=== PATIENT | male | born 1985 | race African-American/Black ===

== ENCOUNTER 2017-12-18 18:30 | Emergency (ER) | payer SELFPAY ==
[2017-12-18] MEDS ORDERED: NORMAL SALINE 1000 ML 1,000 ML IV ONE (19:18)
[2017-12-18] MEDS ORDERED: ONDANSETRON HCL INJ/PF 4 MG/2 ML SDV IV ONE (19:18)
--- NOTE | 2017-12-18 19:19 | ER Document Report ---
ED Medical Screen (RME) - General Chief Complaint: Abdominal Pain Stated Complaint: STOMACH PAIN, HEADACHE Time Seen by Provider: 12/18/17 19:13 Notes: Patient is a 32-year-old male that presents to the emergency department for chief complaint of headache, nausea, and epigastric abdominal pain. Patient states that the symptoms started yesterday, have persisted through today, he admits also to having increased thirst and polyuria. Patient reports diabetes does run in his father, both his grandparents. ROS: Unless otherwise stated in this report the patient's positive and negative responses for review of systems for constitutional, eyes, ENT, cardiovascular, respiratory, gastrointestinal, neurological, genitourinary, musculoskeletal, and integumentary systems and related systems to the presenting problem are either as stated in the HPI or were not pertinent or were negative for the symptoms and/or complaints related to the presenting medical problem. PHYSICAL EXAMINATION: Vital signs reviewed. GENERAL: Well-appearing, well-nourished and in no acute distress. HEAD: Atraumatic, normocephalic. EYES: Pupils equal round extraocular movements intact, conjunctiva are normal. ENT: Nares patent NECK: Normal range of motion CV: Heart regular rate and rhythm LUNGS: No respiratory distress Musculoskeletal: Normal range of motion NEUROLOGICAL: Normal speech PSYCH: Normal mood, normal affect. MDM: Patient seen and examined for rapid initial assessment. Vital signs reviewed. A comprehensive ED assessment and evaluation of the patient, analysis of test results and completion of the medical decision making process will be conducted by additional ED providers. *Note is created using voice recognition software and may contain spelling, syntax or grammatical errors. TRAVEL OUTSIDE OF THE [place] IN LAST 30 DAYS: No - Related Data Allergies/Adverse Reactions: Penicillins Allergy (Verified 12/18/17 18:31) Past Medical History - Social History Chew tobacco use (# tins/day): No Frequency of alcohol use: Social Renal/ Medical History: Denies: Hx Peritoneal Dialysis Physical Exam - Vital signs Vitals: Temp Pulse Resp BP Pulse Ox 98.4 F 86 16 168/100 H 97 12/18/17 18:56 12/18/17 18:56 12/18/17 18:56 12/18/17 18:56 12/18/17 18:56 Course - Vital Signs Vital signs: Temp Pulse Resp BP Pulse Ox 98.4 F 86 16 171/99 H 97 12/18/17 18:56 12/18/17 18:56 12/18/17 18:56 12/18/17 18:57 12/18/17 18:56
[2017-12-18 19:45] LABS: APPEARANCE,URINE CLEAR; BILIRUBIN,URINE NEGATIVE (NEGATIVE); COLOR,URINE YELLOW; GLUCOSE, URINE NEGATIVE (NEGATIVE); KETONES,URINE NEGATIVE (NEGATIVE); LEUKOCYTE ESTERASE,URINE NEGATIVE (NEGATIVE); NITRITE,URINE NEGATIVE (NEGATIVE); PROTEIN,URINE NEGATIVE (NEGATIVE)
[2017-12-18 20:21] LABS: ABSOLUTE BASOPHILS # (AUTO) 0.1 10^3/uL (0.0-0.2); ABSOLUTE EOSINOPHILS # (AUTO) 0.2 10^3/uL (0.0-0.6); ABSOLUTE MONOCYTES (AUTO) 0.8 10^3/uL (0.1-1.4); ABSOLUTE NEUT (AUTO) 5.6 10^3/uL (1.7-8.2); BASOPHILS % (AUTO) 1.4 % (0-2); EOSINOPHILS % (AUTO) 2.1 % (0-6); HEMATOCRIT 41.4 % (37.9-51.0); HEMOGLOBIN 14.1 g/dL (13.5-17.0); LYMPHOCYTES % (AUTO) 37.2 % (13-45); MEAN CORPUSCULAR HEMOGLOBIN 30.4 pg (27.0-33.4); MEAN CORPUSCULAR VOLUME 90 fl (80-97); MONOCYTES % (AUTO) 7.5 % (3-13); PLATELET COUNT 279 10^3/uL (150-450); RED BLOOD COUNT 4.63 10^6/uL (4.35-5.55); RED CELL DISTRIBUTION WIDTH 12.7 % (11.5-14.0); SEGMENTED NEUTROPHILS % (AUTO) 51.8 % (42-78); TOTAL CELLS COUNTED % (AUTO) 100 %; WHITE BLOOD COUNT 10.9 10^3/uL (4.0-10.5)
[2017-12-18 20:35] LABS: ALANINE AMINOTRANSFERASE 27 U/L (21-72); ALBUMIN 3.8 g/dL (3.5-5.0); ALKALINE PHOSPHATASE 72 U/L (38-126); ANION GAP 7 (5-19); ASPARTATE AMINO TRANSFERASE 27 U/L (17-59); BILIRUBIN,DIRECT 0.2 mg/dL (0.0-0.4); BILIRUBIN,TOTAL 0.4 mg/dL (0.2-1.3); BLOOD UREA NITROGEN 12 mg/dL (7-20); CALCIUM 9.4 mg/dL (8.4-10.2); CARBON DIOXIDE 27 mmol/L (22-30); CHLORIDE 104 mmol/L (98-107); GLUCOSE 85 mg/dL (75-110); LIPASE 193.5 U/L (23-300); POTASSIUM 4.2 mmol/L (3.6-5.0); SODIUM 138.3 mmol/L (137-145); TOTAL PROTEIN 6.9 g/dL (6.3-8.2)
--- NOTE | 2017-12-18 21:39 | ER Document Report ---
ED General - General Chief Complaint: Abdominal Pain Stated Complaint: STOMACH PAIN, HEADACHE Time Seen by Provider: 12/18/17 19:13 Mode of Arrival: Ambulatory Information source: Patient TRAVEL OUTSIDE OF THE [place] IN LAST 30 DAYS: No - HPI Patient complains to provider of: Nausea and headache Onset: Other - This is a healthy 32-year-old male that presents for evaluation of nausea and a low-grade headache which is worst in the front of his head. He does not take anything try and help with this nothing seems to make it any better or worse, he does note that he has been going to the bathroom a little bit more than usual lately and has been more thirsty than usual lately. Denies any fevers or chills, episodes of emesis, true abdominal pain diarrhea or constipation or dysuria. - Related Data Allergies/Adverse Reactions: Penicillins Allergy (Verified 12/18/17 18:31) Past Medical History - General Information source: Patient - Social History Smoking Status: Current Every Day Smoker Chew tobacco use (# tins/day): No Frequency of alcohol use: Social Family History: None Patient has suicidal ideation: No Patient has homicidal ideation: No Renal/ Medical History: Denies: Hx Peritoneal Dialysis Review of Systems - Review of Systems -: Yes All other systems reviewed and negative Physical Exam - Vital signs Vitals: Temp Pulse Resp BP Pulse Ox 98.4 F 86 16 168/100 H 97 12/18/17 18:56 12/18/17 18:56 12/18/17 18:56 12/18/17 18:56 12/18/17 18:56 - General General appearance: Appears well In distress: None - HEENT Head: Normocephalic Eyes: Normal Conjunctiva: Normal Cornea: Normal Extraocular movements intact: Yes Eyelashes: Normal Pupils: PERRL - Respiratory Respiratory status: No respiratory distress Chest status: Nontender Breath sounds: Normal Chest palpation: Normal - Cardiovascular Rhythm: Regular Heart sounds: Normal auscultation Murmur: No - Abdominal Inspection: Striae Bowel sounds: Normal Tenderness: Nontender - Back Back: Normal - Extremities General upper extremity: Normal inspection, Nontender, Normal strength, Normal temperature General lower extremity: Normal inspection, Nontender, Normal strength, Normal temperature - Neurological Neuro grossly intact: Yes Cognition: Normal Orientation: AAOx4 [place] Coma Scale Eye Opening: Spontaneous Thang Coma Scale Verbal: Oriented Thang Coma Scale Motor: Obeys Commands Thang Coma Scale Total: 15 Speech: Normal Cranial nerves: Normal Cerebellar coordination: Normal Motor strength normal: LUE, RUE, LLE, RLE - Psychological Associated symptoms: Normal affect Course - Re-evaluation Re-evalutation: 12/19/17 01:54 This is a well-appearing 32-year-old man. He had labs drawn through triage which are within normal limits. 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 I do believe that this may be the case, as he has not taken anything to try and help with this will give him a brief prescription of Fioricet for a trial. Not believe he warrants further imaging at this time as his abdominal examination is reassuring is well-appearing. We will plan for this patient undergo discharge with return precautions and encouraged follow-up with his primary physician. He was encouraged also to avoid wearing tight weeks. - Vital Signs Vital signs: Temp Pulse Resp BP Pulse Ox 98.4 F 66 16 156/94 H 99 12/18/17 18:57 12/18/17 22:14 12/18/17 22:14 12/18/17 22:14 12/18/17 22:14 - Laboratory Result Diagrams: 12/18/17 20:07 12/18/17 20:07 Laboratory results interpreted by me: 12/18/17 12/18/17 19:25 20:07 WBC 10.9 H Urine Urobilinogen 2.0 H Discharge - Discharge Clinical Impression: Nausea Headache Qualifiers: Headache type: tension-type Headache chronicity pattern: acute headache Intractability: not intractable Qualified Code(s): G44.209 - Tension-type headache, unspecified, not intractable Condition: Good Disposition: HOME, SELF-CARE Instructions: Headache ([facility]), Tension Headache ([facility]) Additional Instructions: Your seen today in the emergency department for your headache as well as nausea. Likely they have a tension headache, your nausea may be related to your headache. Use medication prescribed you only as needed for your headache. Return for any worsening headache, numbness or weakness, fevers or chills. Prescriptions: Butalb/Acetaminophen/Caffeine [Fioricet 50-300-40 mg Capsule] 1 cap PO Q4 PRN # 30 cap PRN Reason: Forms: Elevated Blood Pressure, Return to Work
[2017-12-18 22:18] VITALS: BP 156/94
== END 2017-12-18 22:17 | disposition home or self-care (01) ==
LOC: ER 18:30
DX: G44.209 Tension-type headache, unspecified, not intractable (principal); R11.0 Nausea; R63.1 Polydipsia; F17.200 Nicotine dependence, unspecified, uncomplicated; Z88.0 Allergy status to penicillin
CPT/HCPCS: 99284; 96361; 96374; 36415; 82962; 83690; 85025; 80053; 81001; J2405; J7030

== ENCOUNTER 2018-06-13 19:07 | Emergency (ER) | payer SELFPAY ==
[2018-06-13 19:52] VITALS: BP 180/94
[2018-06-13] MEDS ORDERED: ACETAMINOPHEN 325 MG TABLET PO ONE (20:11)
[2018-06-13] MEDS ORDERED: ASPIRIN 81 MG TABLET, CHEWABLE PO ONE (20:11)
--- NOTE | 2018-06-13 20:12 | ER Document Report ---
ED Medical Screen (RME) - General Chief Complaint: Chest Pain Stated Complaint: HEADACHE Time Seen by Provider: 06/13/18 20:09 Mode of Arrival: Ambulatory Information source: Patient Notes: 32-year-old male presented to ED for complaint of chest pain since a.m. States is also had a headache fever chills urinary frequency. He states he had chest pain about a year ago and the provider told him that he was having chest pain because he was fat. He states he did not get any treatment or any testing done at that time. Patient does have a temperature of 101 at this time with a pulse of 105 elevated blood pressure. Patient is alert oriented respirations regular and unlabored lungs clear to auscultation at this time. I have greeted and performed a rapid initial assessment of this patient. A comprehensive ED assessment and evaluation of the patient, analysis of test results and completion of medical decision making process will be conducted by an additional ED providers. TRAVEL OUTSIDE OF THE [place] IN LAST 30 DAYS: No - Related Data Allergies/Adverse Reactions: Penicillins Allergy (Verified 12/18/17 18:31) Past Medical History Renal/ Medical History: Denies: Hx Peritoneal Dialysis Physical Exam - Vital signs Vitals: Temp Pulse Resp BP Pulse Ox 101.2 F H 105 H 18 180/94 H 98 06/13/18 19:49 06/13/18 19:49 06/13/18 19:49 06/13/18 19:49 06/13/18 19:49 Course - Vital Signs Vital signs: Temp Pulse Resp BP Pulse Ox 101.2 F H 105 H 18 180/94 H 98 06/13/18 19:49 06/13/18 19:49 06/13/18 19:49 06/13/18 19:49 06/13/18 19:49
--- NOTE | 2018-06-13 21:01 | RADIOLOGY REPORT (SQ) ---
EXAM DESCRIPTION: XR CHEST 2 VIEWS COMPLETED DATE/TME: 06/13/2018 20:10 CLINICAL HISTORY: 32 years, Male, Chest pain shortness of breath and fever COMPARISON: EXAM DESCRIPTION: CLINICAL HISTORY: Chest pain shortness of breath and fever COMPARISON: None. FINDINGS: Two views of the chest are submitted. There is mild bilateral pulmonary edema. Cardiac silhouette appears normal. No focal parenchymal or pleural disease. No acute bony abnormality. There is no significant pulmonary vascular engorgement. IMPRESSION: Mild pulmonary edema. Possible viral inflammation of the airways.
[2018-06-13 21:33] LABS: ABSOLUTE EOSINOPHILS # (AUTO) 0.1 10^3/uL (0.0-0.6); ABSOLUTE LYMPHOCYTES (AUTO) 1.6 10^3/uL (0.5-4.7); ABSOLUTE MONOCYTES (AUTO) 0.7 10^3/uL (0.1-1.4); BASOPHILS % (AUTO) 0.5 % (0-2); EOSINOPHILS % (AUTO) 0.8 % (0-6); HEMATOCRIT 39.5 % (37.9-51.0); HEMOGLOBIN 13.8 g/dL (13.5-17.0); LYMPHOCYTES % (AUTO) 19.1 % (13-45); MEAN CORPUSCULAR HEMOGLOBIN 30.7 pg (27.0-33.4); MEAN CORPUSCULAR HGB CONC 34.8 g/dL (32.0-36.0); MEAN CORPUSCULAR VOLUME 88 fl (80-97); MONOCYTES % (AUTO) 8.5 % (3-13); PLATELET COUNT 254 10^3/uL (150-450); RED BLOOD COUNT 4.49 10^6/uL (4.35-5.55); SEGMENTED NEUTROPHILS % (AUTO) 71.1 % (42-78); TOTAL CELLS COUNTED % (AUTO) 100 %; WHITE BLOOD COUNT 8.5 10^3/uL (4.0-10.5)
[2018-06-13 21:53] LABS: ALANINE AMINOTRANSFERASE 38 U/L (21-72); ALBUMIN 4.1 g/dL (3.5-5.0); ALKALINE PHOSPHATASE 71 U/L (38-126); ANION GAP 8 (5-19); ASPARTATE AMINO TRANSFERASE 26 U/L (17-59); BILIRUBIN,DIRECT 0.3 mg/dL (0.0-0.4); BILIRUBIN,TOTAL 0.5 mg/dL (0.2-1.3); BLOOD UREA NITROGEN 12 mg/dL (7-20); CARBON DIOXIDE 28 mmol/L (22-30); CHLORIDE 104 mmol/L (98-107); GLUCOSE 87 mg/dL (75-110); TOTAL PROTEIN 7.3 g/dL (6.3-8.2)
[2018-06-13 21:59] LABS: CREATINE KINASE MB 0.27 ng/mL (<4.55)
[2018-06-13 22:00] LABS: TROPONIN I < 0.012 ng/mL
--- NOTE | 2018-06-13 22:43 | EKG REPORT ---
SEVERITY:- BORDERLINE ECG - SINUS TACHYCARDIA PROBABLE LEFT ATRIAL ABNORMALITY BORDERLINE T WAVE ABNORMALITIES : Confirmed by: Nicolette Arana MD 13-Jun-2018 22:42:34
== END 2018-06-13 23:56 | disposition left against medical advice (07) ==
LOC: ER 19:07
DX: Z53.21 Procedure and treatment not carried out due to patient leaving prior to being seen by health care provider (principal); R07.9 Chest pain, unspecified; R51 Headache; R50.9 Fever, unspecified; R35.0 Frequency of micturition; R00.0 Tachycardia, unspecified; R03.0 Elevated blood-pressure reading, without diagnosis of hypertension
CPT/HCPCS: 36415; 71046; 80053; 82553; 83690; 84484; 85025; 87086; 93005; 93010; 99281

== ENCOUNTER 2018-06-14 10:53 | Emergency (ER) | payer SELFPAY ==
[2018-06-14 11:47] LABS: APPEARANCE,URINE CLEAR; BILIRUBIN,URINE NEGATIVE (NEGATIVE); COLOR,URINE YELLOW; GLUCOSE, URINE NEGATIVE (NEGATIVE); KETONES,URINE NEGATIVE (NEGATIVE); LEUKOCYTE ESTERASE,URINE NEGATIVE (NEGATIVE); NITRITE,URINE NEGATIVE (NEGATIVE); PROTEIN,URINE NEGATIVE (NEGATIVE); URINE SPECIFIC GRAVITY 1.021; UROBILINOGEN,URINE NEGATIVE mg/dL (<2.0)
[2018-06-14 12:03] LABS: ABSOLUTE LYMPHOCYTES (AUTO) 0.9 10^3/uL (0.5-4.7); ABSOLUTE MONOCYTES (AUTO) 0.8 10^3/uL (0.1-1.4); ABSOLUTE NEUT (AUTO) 4.7 10^3/uL (1.7-8.2); BASOPHILS % (AUTO) 0.6 % (0-2); EOSINOPHILS % (AUTO) 0.7 % (0-6); HEMATOCRIT 41.2 % (37.9-51.0); LYMPHOCYTES % (AUTO) 13.6 % (13-45); MEAN CORPUSCULAR HEMOGLOBIN 29.8 pg (27.0-33.4); MEAN CORPUSCULAR VOLUME 88 fl (80-97); MONOCYTES % (AUTO) 11.7 % (3-13); PLATELET COUNT 235 10^3/uL (150-450); RED BLOOD COUNT 4.69 10^6/uL (4.35-5.55); SEGMENTED NEUTROPHILS % (AUTO) 73.4 % (42-78); TOTAL CELLS COUNTED % (AUTO) 100 %; WHITE BLOOD COUNT 6.4 10^3/uL (4.0-10.5)
--- NOTE | 2018-06-14 12:12 | RADIOLOGY REPORT (SQ) ---
EXAM DESCRIPTION: CHEST 2 VIEWS COMPLETED DATE/TIME: 06/14/2018 12:01 pm REASON FOR STUDY: coughff congestion chest pain COMPARISON: 06/13/2018 EXAM PARAMETERS: NUMBER OF VIEWS: two views TECHNIQUE: Digital Frontal and Lateral radiographic views of the chest acquired. RADIATION DOSE: NA LIMITATIONS: none FINDINGS: LUNGS AND PLEURA: There is minimal diffuse interstitial pulmonary opacity. No focal airsp massiel opacity. MEDIASTINUM AND HILAR STRUCTURES: No masses or contour abnormalities. HEART AND VASCULAR STRUCTURES: Heart normal size. No evidence for failure. BONES: No acute findings. HARDWARE: None in the chest. OTHER: No other significant finding. IMPRESSION: There is minimal diffuse interstitial pulmonary opacity without focal airspace opacity. As on prior, findings may reflect atypical or viral infection. TECHNICAL DOCUMENTATION: JOB ID: [id number] [employer]- All Rights Reserved Reading location - IP/workstation name: [email or web address]
[2018-06-14 12:27] LABS: ALANINE AMINOTRANSFERASE 40 U/L (21-72); ALBUMIN 4.1 g/dL (3.5-5.0); ALKALINE PHOSPHATASE 68 U/L (38-126); ANION GAP 7 (5-19); ASPARTATE AMINO TRANSFERASE 28 U/L (17-59); BILIRUBIN,DIRECT 0.2 mg/dL (0.0-0.4); BILIRUBIN,TOTAL 0.5 mg/dL (0.2-1.3); BLOOD UREA NITROGEN 11 mg/dL (7-20); CALCIUM 9.8 mg/dL (8.4-10.2); CARBON DIOXIDE 27 mmol/L (22-30); CHLORIDE 106 mmol/L (98-107); GLUCOSE 93 mg/dL (75-110); POTASSIUM 3.9 mmol/L (3.6-5.0); SODIUM 140.4 mmol/L (137-145); TOTAL PROTEIN 7.4 g/dL (6.3-8.2)
--- NOTE | 2018-06-14 13:53 | ER Document Report ---
ED General - General Chief Complaint: Chest Pain Stated Complaint: HEADACHE/CHEST PAIN/DIZZY Time Seen by Provider: 06/14/18 11:21 TRAVEL OUTSIDE OF THE [place] IN LAST 30 DAYS: No - HPI Patient complains to provider of: Multiple complaints Notes: Patient coming in for 2 days of fevers chills nausea no vomiting no diarrhea chest pains headaches myalgias arthralgias. Patient states he was exposed to someone with influenza at his work. Patient states he did not receive a flu vac cine this year. Patient otherwise denies any other medical issues denies any recent travel patient is no obvious distress upon my evaluation resting comfortably. Patient denies any exacerbation or relieving factors of his pain. - Related Data Allergies/Adverse Reactions: Penicillins Allergy (Verified 06/14/18 10:55) Past Medical History - Social History Smoking Status: Current Every Day Smoker Frequency of alcohol use: None Drug Abuse: None Family History: None Patient has suicidal ideation: No Patient has homicidal ideation: No Renal/ Medical History: Denies: Hx Peritoneal Dialysis Past Surgical History: Reports: Hx Orthopedic Surgery - rt knee Review of Systems - Review of Systems Constitutional: Other - Fevers chills arthralgias myalgias nausea EENT: No symptoms reported Cardiovascular: No symptoms reported Respiratory: No symptoms reported Gastrointestinal: No symptoms reported Genitourinary: No symptoms reported Male Genitourinary: No symptoms reported Musculoskeletal: No symptoms reported Skin: No symptoms reported Hematologic/Lymphatic: No symptoms reported Neurological/Psychological: No symptoms reported -: Yes All other systems reviewed and negative Physical Exam - Vital signs Vitals: Temp Pulse Resp BP Pulse Ox 99.3 F 89 20 187/98 H 96 06/14/18 11:06 06/14/18 11:06 06/14/18 11:06 06/14/18 11:06 06/14/18 11:06 Interpretation: Normal - General General appearance: Appears well, Alert - HEENT Head: Normocephalic, Atraumatic Eyes: Normal Pupils: PERRL - Respiratory Respiratory status: No respiratory distress Chest status: Nontender Breath sounds: Normal Chest palpation: Normal - Cardiovascular Rhythm: Regular Heart sounds: Normal auscultation Murmur: No - Abdominal Inspection: Normal Distension: No distension Bowel sounds: Normal Tenderness: Nontender Organomegaly: No organomegaly - Back Back: Normal, Nontender - Extremities General upper extremity: Normal inspection, Nontender, Normal color, Normal ROM, Normal temperature General lower extremity: Normal inspection, Nontender, Normal color, Normal ROM, Normal temperature, Normal weight bearing. No: Willis's sign - Neurological Neuro grossly intact: Yes Cognition: Normal Orientation: AAOx4 Thang Coma Scale Eye Opening: Spontaneous Thang Coma Scale Verbal: Oriented Thang Coma Scale Motor: Obeys Commands [place] Coma Scale Total: 15 Speech: Normal Motor strength normal: LUE, RUE, LLE, RLE Sensory: Normal - Psychological Associated symptoms: Normal affect, Normal mood - Skin Skin Temperature: Warm Skin Moisture: Dry Skin Color: Normal Course - Re-evaluation Re-evalutation: 06/14/18 13:48 Patient presents today with flulike symptoms. Laboratory studies not show any critical pathology. Chest x-ray again redemonstrates possible viral etiology. Patient has no white count no fever at this time. I did offer the patient has any bacterial process ongoing. Patient has declined Tamiflu treatment at this time will treat nausea vomiting patient will be educated about use Tylenol and Motrin will be discharged home - Vital Signs Vital signs: Temp Pulse Resp BP Pulse Ox 99.3 F 89 10 L 170/85 H 98 06/14/18 11:06 06/14/18 11:06 06/14/18 13:01 06/14/18 13:01 06/14/18 13:01 - Laboratory Result Diagrams: 06/14/18 11:41 06/14/18 11:41 Laboratory results interpreted by me: 06/14/18 11:18 Urine Blood SMALL H Discharge - Discharge Clinical Impression: Flu-like symptoms Condition: Good Disposition: HOME, SELF-CARE Instructions: Influenza ([facility]), Chest Wall Pain ([facility]), Nausea or Vomiting, Nonspecific ([facility]) Additional Instructions: Evaluation there is consistent with a viral illness more likely the flu. Recommend taking Tylenol Motrin for your pain and for any fevers. Take Zofran or Phenergan as prescribed for any nausea. Return to ER symptoms worsen. Please make sure you are drinking plenty of fluids to stay well-hydrated. Prescriptions: Ibuprofen [Motrin 600 mg Tablet] 600 mg PO Q8HP PRN #21 tablet PRN Reason: Ondansetron [Zofran Odt 4 mg Tablet] 1 - 2 tab PO Q4H PRN #30 tab.rapdis PRN Reason: For Nausea/Vomiting Promethazine HCl [Phenergan 25 mg Tablet] 25 mg PO Q6 #30 tablet Forms: Return to Work
[2018-06-14 14:25] VITALS: BP 165/91
--- NOTE | 2018-06-14 19:32 | EKG REPORT ---
SEVERITY:- BORDERLINE ECG - SINUS RHYTHM BORDERLINE T WAVE ABNORMALITIES : Confirmed by: Nicolette Arana MD 14-Jun-2018 19:31:26
== END 2018-06-14 14:22 | disposition home or self-care (01) ==
LOC: ER 10:53
DX: R50.9 Fever, unspecified (principal); R07.9 Chest pain, unspecified; R51 Headache; M79.10 Myalgia, unspecified site; M25.50 Pain in unspecified joint; R11.0 Nausea; F17.200 Nicotine dependence, unspecified, uncomplicated; Z88.0 Allergy status to penicillin
CPT/HCPCS: 36415; 71046; 80053; 81001; 84484; 85025; 93005; 93010; 99284

== ENCOUNTER 2018-06-18 23:49 | Emergency (ER) | payer SELFPAY | END 2018-06-19 02:00 | disposition left against medical advice (07) | LOC: ER 23:49 | DX: Z53.21 Procedure and treatment not carried out due to patient leaving prior to being seen by health care provider (principal); R05 Cough ==

== ENCOUNTER 2018-09-05 10:11 | Emergency (ER) | payer SELFPAY ==
[2018-09-05 10:18] VITALS: BP 148/106
[2018-09-05] MEDS ORDERED: ONDANSETRON 4 MG TAB.RAPDIS PO ONE (10:34)
[2018-09-05] MEDS ORDERED: IBUPROFEN 600 MG TABLET PO ONE (10:34)
--- NOTE | 2018-09-05 10:40 | ER Document Report ---
HPI - HPI Time Seen by Provider: 09/05/18 10:23 Pain Level: 4 Context: Patient is a 32-year-old male with a history of asthma and eczema who presents to the emergency department with sore throat. Patient states that yesterday he developed a sore throat and noticed pain when swallowing on the left side. Patient states he has had a yellow to brown mucus at times with cough. Patient states the cough has also been for 24 hours. Patient states this morning while at work he attempted to drink some venkat richy to help with his sore throat and at that time he did vomit once. Denies abdominal pain. Denies diarrhea. Denies fever or chills. Patient does use his albuterol inhaler as needed and his last use was last week. Patient states he works at a [employer] and is concerned that he may not be able to work today. Past Medical History - General Information source: Patient - Social History Smoking Status: Current Every Day Smoker Cigarette use (# per day): Yes - 3 cigs per day Chew tobacco use (# tins/day): No Smoking Education Provided: No Frequency of alcohol use: Rare Drug Abuse: None Lives with: Spouse/Significant other Family History: None - Past Medical History Cardiac Medical History: Reports: None Pulmonary Medical History: Reports: Hx Asthma EENT Medical History: Reports: None Neurological Medical History: Reports: None Endocrine Medical History: Reports: None Renal/ Medical History: Reports: None. Denies: Hx Peritoneal Dialysis Malignancy Medical History: Reports None GI Medical History: Reports: None Musculoskeletal Medical History: Reports None Skin Medical History: Reports Hx Eczema Psychiatric Medical History: Reports: None Traumatic Medical History: Reports: None Infectious Medical History: Reports: None Past Surgical History: Reports: Hx Orthopedic Surgery - rt knee Vertical Provider Document - CONSTITUTIONAL Agree With Documented VS: Yes Exam Limitations: No Limitations General Appearance: No Apparent Distress Notes: GENERAL: Well-appearing, well-nourished and in no acute distress. HEAD: Atraumatic, normocephalic. EYES: Pupils equal round and reactive to light, extraocular movements intact, sclera anicteric, conjunctiva are normal. ENT: TMs normal, nares patent, oropharynx clear without exudates. Moist mucous membranes. Tonsil erythema, without edema or exudate. Uvula is midline. NECK: Normal range of motion, supple without lymphadenopathy or JVD. LUNGS: Breath sounds clear to auscultation bilaterally and equal. No wheezes rales or rhonchi. HEART: Regular rate and rhythm without murmurs, rubs or gallops. ABDOMEN: Soft, nontender, normoactive bowel sounds. No guarding, no rebound. No masses appreciated. BACK: No cervical, thoracic, lumbar midline tenderness. No saddle anesthesia, normal distal neurovascular exam. GENITOURINARY: Deferred. EXTREMITIES: Normal range of motion, no pitting or edema. No clubbing or cyanosis. NEUROLOGICAL: Cranial nerves II through XII grossly intact. Normal speech, normal gait. PSYCH: Normal mood, normal affect. SKIN: Warm, Dry, normal turgor, no rashes or lesions noted. - INFECTION CONTROL TRAVEL OUTSIDE OF THE [place] IN LAST 30 DAYS: No Course - Re-evaluation Re-evalutation: 09/05/18 10:37 Patient sitting upright on stretcher in no acute distress. Patient is nontoxic- appearing. Patient symptoms appear to be a viral as he has only been ongoing for 1 day. I did explain this to the patient. I will obtain a strep swab. 09/05/18 11:15 Stress test was positive for drip. Patient is allergic to penicillin so I will probably treat with clindamycin for 10 days. I did inform the patient that Clindamycin can cause GI upset and to return for alternative treatment if he is unable to tolerate this. Patient verbalized understanding. Educated to take medication with food. Will give Zofran to take home. - Vital Signs Vital signs: Temp Pulse Resp BP Pulse Ox 97.7 F 78 18 148/106 H 94 09/05/18 10:16 09/05/18 10:16 09/05/18 10:16 09/05/18 10:16 09/05/18 10:16 Discharge - Discharge Clinical Impression: Cough, Strep throat Nausea & vomiting Qualifiers: Vomiting type: unspecified Vomiting Intractability: non-intractable Qualified Code(s): R11.2 - Nausea with vomiting, unspecified Condition: Stable Disposition: HOME, SELF-CARE Instructions: Sore Throat ([facility]), Upper Respiratory Illness ([facility]), Viral Syndrome ([facility]), Vomiting ([facility]) Additional Instructions: Today you were seen in the emergency department for sore throat and cough. Your throat swab was positive for strep. Given an antibiotic for this. We have given you a dose of antinausea medicine called Zofran and you have been able to tolerate it without vomiting. Please rest. Drink plenty of fluids. Please return to the emergency department for uncontrollable vomiting, fever, abdominal pain, diarrhea, difficulty swallowing due to swelling of the airway or unable to swallow your secretions, headache, neck stiffness or any other concerning signs or symptoms. Today your blood pressure was slightly elevated at 148/106. Please follow-up with either the [facility] where the [facility] to have this reevaluated. Upper Respiratory Illness You have a viral infection of the respiratory passages -- a "cold." This common infection causes nasal congestion, drainage, and often sore throat and cough. It is caused by a virus and is highly contagious. The disease usually lasts a week or more, though the worst symptoms are usually over in 3 or 4 days. There is no "cure" for the viral infection -- it must run its course. If there is a complication, such as bacterial infection in the nose, sinuses, middle ear, or bronchial tubes, antibiotics may be required, but antibiotics won't affect the virus. If you smoke, you should STOP!! Drink plenty of fluids. A humidifier may help. An expectorant medication or decongestant may make you more comfortable. Use acetaminophen or ibuprofen for fever or aches. See the doctor if fever persists over two or three days, if there is any significant worsening of your symptoms, or if you simply fail to improve as expected. Strep Throat Your sore throat is due to the streptococcus germ (strep throat). Strep throat usually makes you feel quite ill with fever and aches, headache, swollen sore throat, and tender bumps under the angles of the jaw. Strep throat requires antibiotic treatment. Although the sore throat may go away by itself, complications such as rheumatic fever, kidney disease, or throat abscess can occur. We usually prescribe antibiotics by mouth. Be sure to take the medicine until it's gone. If you stop early, the strep may come back. If you are vomiting, are severely ill, or can't remember to take pills, we can give you an antibiotic shot. Take acetaminophen or ibuprofen for pain and fever. Sip frequent clear liquids, or use popsicles or ice chips. Anesthetic sprays or lozenges may help. Make sure the air in the room is not too dry. Avoid using decongestants or antihistamines. Call the doctor if there is no improvement in three days, or if you have difficulty breathing, increasing throat pain, high fever, rash, or frequent vomiting. Stop Smoking You should stop smoking. The tar and chemicals in cigarette smoke are harmful. Smoking has been shown to cause: Emphysema and chronic bronchitis Lung cancer Cancer of the mouth, larynx, stomach, and pancreas Heart disease and stroke Stillbirths and miscarriage Premature aging In addition, smoking increases the chances of respiratory infections and ear infections in children of smokers, and increases the risk of cancer in persons exposed to second-hand smoke. Classes are available to help you stop smoking. If you are serious about wanting to quit, we can help arrange this therapy for you, or you can contact the local lung or cancer association. Prescriptions: Clindamycin HCl 300 mg PO TID 10 Days #30 capsule Forms: Elevated Blood Pressure, Return to Work Referrals: [facility] [Provider Group] - Follow up as needed [facility] [Provider Group] - Follow up as needed
[2018-09-05] MEDS ORDERED: CLINDAMYCIN HCL 150 MG CAPSULE PO ONE (11:12)
[2018-09-05] MEDS ORDERED: ONDANSETRON ODT 4 MG TAB (6 TAB/ER DISP) PO PRN (11:13)
== END 2018-09-05 11:20 | disposition home or self-care (01) ==
LOC: ER 10:11
DX: J02.0 Streptococcal pharyngitis (principal); R05 Cough; R11.2 Nausea with vomiting, unspecified; R13.10 Dysphagia, unspecified; F17.210 Nicotine dependence, cigarettes, uncomplicated; J45.909 Unspecified asthma, uncomplicated
CPT/HCPCS: 99283; 87880; S0119

== ENCOUNTER 2019-01-18 11:26 | Emergency (ER) | payer SELFPAY ==
[2019-01-18 11:37] VITALS: BP 211/118
[2019-01-18] MEDS ORDERED: CLONIDINE HCL 0.1 MG TABLET PO ONE (11:47)
--- NOTE | 2019-01-18 11:52 | ER Document Report ---
HPI - HPI Time Seen by Provider: 01/18/19 11:35 Pain Level: 3 Notes: Patient is a 33-year-old male with no significant past medical history who presents complaining of rectal pain x4 days after having anal sex with his boyfriend. Patient states that he has noticed some discomfort primarily when he has a bowel movement and a small amount of blood. Patient states that the day after he did get tested for STDs which was negative. Patient states that overall his symptoms have been improving otherwise and he did have a good bowel movement today. He still has some discomfort associated. He is able to eat and drink without difficulty. He is urinating normally. Patient states that he has had elevated blood pressure last few times that he has been here, but is not on any medicine. Denies any headache, fever, head injury, neck pain, changes in vision/speech/mentation/hearing, URI, sore throat, chest pain, palpitations, syncope, cough, shortness of breath, wheeze, dyspnea, abdominal pain, nausea/vomiting/diarrhea, urinary retention, dysuria, hematuria, loss of control of bowel or bladder, numbness/tingling, saddle anesthesia, muscle paralysis/weakness, or rash. - ROS Systems Reviewed and Negative: Yes All other systems reviewed and negative Past Medical History - Social History Smoking Status: Current Every Day Smoker Chew tobacco use (# tins/day): No Frequency of alcohol use: Occasional Drug Abuse: None Family History: None Patient has suicidal ideation: No Patient has homicidal ideation: No Pulmonary Medical History: Reports: Hx Asthma Renal/ Medical History: Denies: Hx Peritoneal Dialysis Skin Medical History: Reports Hx Eczema Past Surgical History: Reports: Hx Orthopedic Surgery - rt knee Vertical Provider Document - CONSTITUTIONAL Agree With Documented VS: Yes Notes: PHYSICAL EXAMINATION: GENERAL: Well-appearing, well-nourished and in no acute distress. HEAD: Atraumatic, normocephalic. EYES: Pupils equal round and reactive to light, extraocular movements intact, sclera anicteric, conjunctiva are normal. ENT: Nares patent and without discharge. oropharynx clear without exudates. No tonsilar hypertrophy or erythema. Moist mucous membranes. No sinus tenderness. NECK: Normal range of motion, supple without lymphadenopathy LUNGS: Breath sounds clear to auscultation bilaterally and equal. No wheezes rales or rhonchi. HEART: Regular rate and rhythm without murmurs, rubs, gallops. ABDOMEN: Soft, nontender, nondistended abdomen. No guarding, no rebound. Normal bowel sounds present. No CVA tenderness bilaterally. Rectal (with ticket collector, exam): No obvious fissure, mass, or lesion noted. No obvious melena or hematochezia noted. Musculoskeletal: FROM to passive/active. Strength 5+/5. Extremities: No cyanosis, clubbing, or edema b/l. Peripheral pulses 2+. Capillary refill less than 3 seconds. NEUROLOGICAL: Cranial nerves grossly intact. Normal speech, normal gait. Normal sensory, motor exams PSYCH: Normal mood, normal affect. SKIN: Warm, Dry, normal turgor, no rashes or lesions noted. - INFECTION CONTROL TRAVEL OUTSIDE OF THE [place] IN LAST 30 DAYS: No Course - Re-evaluation Re-evalutation: 01/18/19 11:50 Patient is an afebrile, well-hydrated, 33-year-old male who presents with rectal pain status post anal intercourse which I suspect to be possible fissure. He has not had any deterioration in symptoms rather improvement over the past few days. He was tested for STDs 3 days ago which were unremarkable at that time. Patient also presents with asymptomatic hypertension and according to ACEP guidelines no work-up is warranted at this time. Patient is nontoxic-appearing and is tolerating p.o. without difficulty. Vitals are acceptable without significant tachycardia, tachypnea, or hypoxia. Patient was given a small dose of clonidine today. I will send him home with a prescription for HCTZ with side effects reviewed. He does have the means to monitor blood pressure at home. I do recommend that he follows up with GI doctor for possible colonoscope and further evaluation. Low suspicion/risk for acute appendicitis, bowel obstruction, acute cholecystitis, perforated diverticulitis, incarcerated hernia, pancreatitis, perforated ulcer, peritonitis, sepsis, testicular torsion, or other systemic emergent condition at this time. Patient is aware that his condition can change from initial presentation and he needs to monitor symptoms closely and seek medical attention if any acute changes. Conservative measures otherwise for symptoms. Recheck with PCM in 2-3 days. Return to the ED with any worsening/concerning symptoms otherwise as reviewed in discharge. Patient is in agreement. Reviewed with Dr. Morrow who is in agreement with dispo/plan. - Vital Signs Vital signs: Temp Pulse Resp BP Pulse Ox 97.7 F 104 H 16 211/118 H 100 01/18/19 11:30 01/18/19 11:30 01/18/19 11:30 01/18/19 11:30 01/18/19 11:30 Discharge - Discharge Clinical Impression: Rectal pain, Elevated blood pressure reading Condition: Stable Disposition: HOME, SELF-CARE Additional Instructions: Maintain adequate fluid and food intake Avoid intercourse for now Tylenol/Motrin as needed Monitor for any worsening symptoms Monitor your blood pressure daily Make sure you are staying hydrated enough to urinate and have normal BM's Recheck with your PCM in 2-3 days Schedule consult with gastroenterology for further evaluation and management Return to the ED with any worsening symptoms and/or development of fever, headache, chest pain, palpitations, syncope, shortness of breath, trouble breathing, abdominal pain, n/v/d, blood in stool/urine, weakness, or other worsening symptoms that are concerning to you. Prescriptions: Hydrocortisone Acetate [Anusol Hc 25 mg Supp.rect] 1 supp.rect NH DAILY PRN #10 supp.rect PRN Reason: Hydrochlorothiazide [Hydrodiuril 25 mg Tablet] 25 mg PO QAM #30 tablet Lidocaine HCl [Xylocaine] 1 gm TP QID PRN #35 oint..gm. PRN Reason: Forms: Elevated Blood Pressure Referrals: ARIE HUMPHREY MD [ACTIVE STAFF] - Follow up as needed BOB SANTILLAN MD [ACTIVE STAFF] - Follow up as needed YESSY MARTELL MD [ACTIVE STAFF] - Follow up as needed
== END 2019-01-18 12:13 | disposition home or self-care (01) ==
LOC: ER 11:26
DX: K62.89 Other specified diseases of anus and rectum (principal); R03.0 Elevated blood-pressure reading, without diagnosis of hypertension; F17.200 Nicotine dependence, unspecified, uncomplicated
CPT/HCPCS: 99283

== ENCOUNTER 2019-02-25 06:11 | Emergency (ER) | payer SELFPAY ==
[2019-02-25 06:34] VITALS: BP 159/91
[2019-02-25] MEDS ORDERED: IBUPROFEN 600 MG TABLET PO ONE (08:47)
--- NOTE | 2019-02-25 09:09 | ER Document Report ---
ED Extremity Problem, Lower - General Chief Complaint: Knee Pain Stated Complaint: LEFT KNEE SWOLLEN Time Seen by Provider: 02/25/19 08:03 Primary Care Provider: [facility] [Provider Group] - Follow up as needed KEMI OAKLEY MD [ACTIVE STAFF] - Follow up as needed MARIE AVILES JR, DO [ACTIVE PROVISIONAL STAFF] - Follow up as needed Notes: 33-year-old male presents for left knee pain for the last 3 days. Patient denies any trauma but states he heard a pop while walking. Patient is able to ambulate without difficulty. Patient states he has injured his right knee in the past and has had surgery to this knee but has never injured his left knee. Patient denies any fever. TRAVEL OUTSIDE OF THE [place] IN LAST 30 DAYS: No - Related Data Allergies/Adverse Reactions: Penicillins Allergy (Verified 02/25/19 06:34) Past Medical History - Social History Smoking Status: Current Every Day Smoker Family History: None Patient has suicidal ideation: No Patient has homicidal ideation: No Pulmonary Medical History: Reports: Hx Asthma Renal/ Medical History: Denies: Hx Peritoneal Dialysis Skin Medical History: Reports Hx Eczema Past Surgical History: Reports: Hx Orthopedic Surgery - rt knee Review of Systems - Review of Systems Notes: Constitutional: Negative for fever. HENT: Negative for sore throat. Eyes: Negative for visual changes. Cardiovascular: Negative for chest pain. Respiratory: Negative for shortness of breath. Gastrointestinal: Negative for abdominal pain, vomiting or diarrhea. Genitourinary: Negative for dysuria. Musculoskeletal: Positive for left knee pain. Negative for back pain. Skin: Negative for rash. Neurological: Negative for headaches, weakness or numbness. 10 point ROS negative except as marked above and in HPI. Physical Exam - Vital signs Vitals: Temp Pulse Resp BP Pulse Ox 98.3 F 85 20 159/91 H 96 02/25/19 06:30 02/25/19 06:30 02/25/19 06:30 02/25/19 06:30 02/25/19 06:30 - Notes Notes: GENERAL: Well-appearing, morbidly obese, well-nourished and in no acute distress. HEAD: Atraumatic, normocephalic. EYES: Extraocular movements intact, sclera anicteric, conjunctiva are normal. NECK: Normal range of motion, supple without lymphadenopathy or JVD. EXTREMITIES: Normal range of motion, no pitting or edema. No clubbing or cyanosis. Left knee: Tenderness to left knee, no erythema, pain upon flexion, anterior/posterior drawer neg, no pain with extension, no crepitus NEUROLOGICAL: Cranial nerves II through XII grossly intact. Normal speech, no rmal gait. PSYCH: Normal mood, normal affect. SKIN: Warm, Dry, normal turgor, no rashes or lesions noted. Course - Re-evaluation Re-evalutation: 02/25/19 nontoxic, well-appearing patient with left knee pain. No erythema to suggest cellulitis. Patient is tender upon flexion. Anterior/posterior drawer negative. Patient is able to ambulate without difficulty. X-ray of left knee pending. 02/25/19 09:22 X-ray shows no fracture with small joint effusion. 02/25/19 09:45 discussed all results with patient. Patient given prescription for ibuprofen and instructions to right rest ice and elevate knee. Patient also given referral to PCP and Ortho. Return precautions given. Patient voices understanding and agrees with plan of care. - Vital Signs Vital signs: Temp Pulse Resp BP Pulse Ox 98.3 F 85 16 159/91 H 96 02/25/19 06:38 02/25/19 06:38 02/25/19 06:38 02/25/19 06:38 02/25/19 06:38 Discharge - Discharge Clinical Impression: Left knee pain Qualifiers: Chronicity: acute Qualified Code(s): M25.562 - Pain in left knee Condition: Stable Disposition: HOME, SELF-CARE Instructions: Ice & Elevation ([facility]), Suspected Internal Knee Injury ([facility]), Sprained Knee ([facility]) Additional Instructions: Your x-ray did not show any fractures. Please take ibuprofen as prescribed. Please rest ice and elevate your knee. Follow-up with your primary care doctor 1 of the clinics listed. If no improvement in knee pain in 1 to 2 weeks please follow-up with Ortho. Return to ER for any worsening symptoms, including worsening pain, redness to area, fever, increased swelling, not being able to walk, or any other symptoms that are concerning to you. Prescriptions: Ibuprofen [Motrin 800 mg Tablet] 800 mg PO Q8H PRN #30 tab PRN Reason: Forms: Return to Work Referrals: KEMI OAKLEY MD [ACTIVE STAFF] - Follow up as needed [facility] [Provider Group] - Follow up as needed MARIE AVILES JR, DO [ACTIVE PROVISIONAL STAFF] - Follow up as needed
--- NOTE | 2019-02-25 09:11 | RADIOLOGY REPORT (SQ) ---
EXAM DESCRIPTION: KNEE LEFT 4 VIEW COMPLETED DATE/TIME: 02/25/2019 7:33 am REASON FOR STUDY: PAIN COMPARISON: None. NUMBER OF VIEWS: Four views. TECHNIQUE: AP, lateral, and both oblique radiographic images acquired of the left knee. LIMITATIONS: None. FINDINGS: MINERALIZATION: Normal. BONES: No acute fracture or dislocation. No worrisome bone lesions. No large osteophytes. JOINT: Likely small joint effusion. SOFT TISSUES: No soft tissue swelling. No radio-opaque foreign body. OTHER: No other significant finding. IMPRESSION: No evidence of acute bony abnormality. Likely small joint effusion. TECHNICAL DOCUMENTATION: JOB ID: [id number] [employer]- All Rights Reserved Reading location - IP/workstation name: [email or web address]
== END 2019-02-25 09:50 | disposition home or self-care (01) ==
LOC: ER 06:11
DX: M25.562 Pain in left knee (principal); M79.89 Other specified soft tissue disorders; F17.200 Nicotine dependence, unspecified, uncomplicated; J45.909 Unspecified asthma, uncomplicated
CPT/HCPCS: 99283

== ENCOUNTER 2019-02-26 17:38 | Emergency (ER) | payer OTHER ==
--- NOTE | 2019-02-26 18:10 | ER Document Report ---
ED Medical Screen (RME) - General Chief Complaint: Knee Pain Stated Complaint: KNEE PAIN Time Seen by Provider: 02/26/19 18:03 TRAVEL OUTSIDE OF THE [place] IN LAST 30 DAYS: No - HPI Notes: 02/26/19 18:09 Patient is a 33-year-old male who presents complaining of worsening swelling to his left knee over the past couple days since his visit here initially. Patient states that he was walking and may have felt a awkward sliding motion within his knee. He had a little bit of pain at that time and just a small amount of swelling, but patient states that the pain and swelling has significantly worsened over the last 2 days. He has noticed significant warmth to the knee as well. No other fever that he is aware of. I have treated and performed a rapid initial assessment of this patient. A comprehensive ED assessment and evaluation of the patient, analysis of test results and completion of medical decision making process will be conducted by additional ED providers. PHYSICAL EXAMINATION: GENERAL: Well-appearing, well-nourished and in no acute distress. A&Ox4. Answers questions appropriately. Left knee: There is a moderate to large effusion noted on exam with warmth versus the right knee. There is tenderness to light palpation around the knee as well. - Related Data Allergies/Adverse Reactions: Penicillins Allergy (Verified 02/26/19 18:03) Past Medical History Pulmonary Medical History: Reports: Hx Asthma Renal/ Medical History: Denies: Hx Peritoneal Dialysis Skin Medical History: Reports Hx Eczema Past Surgical History: Reports: Hx Orthopedic Surgery - rt knee Physical Exam - Vital signs Vitals: Temp Pulse Resp BP Pulse Ox 98.1 F 97 17 165/103 H 97 02/26/19 17:43 02/26/19 17:43 02/26/19 17:43 02/26/19 17:43 02/26/19 17:43 Course - Vital Signs Vital signs: Temp Pulse Resp BP Pulse Ox 98.1 F 97 17 165/103 H 97 02/26/19 17:43 02/26/19 17:43 02/26/19 17:43 02/26/19 17:43 02/26/19 17:43
[2019-02-26] MEDS ORDERED: KETOROLAC TROMETHAMINE INJ/PF 30 MG/1 ML SDV IV ONE (18:11)
--- NOTE | 2019-02-26 18:33 | RADIOLOGY REPORT (SQ) ---
EXAM DESCRIPTION: KNEE LEFT 4 VIEW COMPLETED DATE/TIME: 02/26/2019 6:22 pm REASON FOR STUDY: worsening swelling, pain COMPARISON: 02/25/2019. NUMBER OF VIEWS: Four views left knee LIMITATIONS: None. FINDINGS: Similar appearance to prior. Small joint effusion. No overt acute fracture although ther e does appear to be a well corticated potential loose body in the posterior joint, as before. OTHER: No other significant finding. IMPRESSION: Stable appearance. No acute findings noted. As before, suspected joint effusion. TECHNICAL DOCUMENTATION: JOB ID: [id number] Reading location - IP/workstation name: [email or web address]
[2019-02-26] MEDS ORDERED: OXYCODONE HCL IR 5 MG TABLET PO ONE (18:47)
[2019-02-26 18:49] LABS: ABSOLUTE EOSINOPHILS # (AUTO) 0.1 10^3/uL (0.0-0.6); ABSOLUTE LYMPHOCYTES (AUTO) 3.5 10^3/uL (0.5-4.7); ABSOLUTE MONOCYTES (AUTO) 0.6 10^3/uL (0.1-1.4); BASOPHILS % (AUTO) 0.3 % (0-2); HEMATOCRIT 40.2 % (37.9-51.0); HEMOGLOBIN 13.8 g/dL (13.5-17.0); LYMPHOCYTES % (AUTO) 48.7 % (13-45); MEAN CORPUSCULAR HGB CONC 34.3 g/dL (32.0-36.0); MEAN CORPUSCULAR VOLUME 88 fl (80-97); MONOCYTES % (AUTO) 7.7 % (3-13); PLATELET COUNT 224 10^3/uL (150-450); RED BLOOD COUNT 4.59 10^6/uL (4.35-5.55); RED CELL DISTRIBUTION WIDTH 12.9 % (11.5-14.0); SEGMENTED NEUTROPHILS % (AUTO) 42.3 % (42-78); TOTAL CELLS COUNTED % (AUTO) 100 %; WHITE BLOOD COUNT 7.2 10^3/uL (4.0-10.5)
[2019-02-26 19:39] LABS: ERYTHROCYTE SEDIMENTATION RATE 31 mm/hr (0-15)
[2019-02-26 19:41] LABS: ALBUMIN 4.1 g/dL (3.5-5.0); ALKALINE PHOSPHATASE 68 U/L (38-126); ANION GAP 11 (5-19); ASPARTATE AMINO TRANSFERASE 30 U/L (17-59); BILIRUBIN,DIRECT 0.2 mg/dL (0.0-0.4); BILIRUBIN,TOTAL 0.5 mg/dL (0.2-1.3); BLOOD UREA NITROGEN 12 mg/dL (7-20); CALCIUM 9.4 mg/dL (8.4-10.2); CARBON DIOXIDE 25 mmol/L (22-30); CHLORIDE 104 mmol/L (98-107); GLUCOSE 82 mg/dL (75-110); POTASSIUM 3.9 mmol/L (3.6-5.0); TOTAL PROTEIN 7.4 g/dL (6.3-8.2)
[2019-02-26 20:26] LABS: C-REACTIVE PROTEIN 15.8 mg/L (<10.0)
[2019-02-26] MEDS ORDERED: KETOROLAC TROMETHAMINE INJ/PF 30 MG/1 ML SDV IM ONE (21:26)
--- NOTE | 2019-02-26 21:29 | ER Document Report ---
ED General - General Chief Complaint: Knee Pain Stated Complaint: KNEE PAIN Time Seen by Provider: 02/26/19 18:03 TRAVEL OUTSIDE OF THE [place] IN LAST 30 DAYS: No - HPI Notes: Mr. Cervantes is a 33-year-old male with a chief complaint of left knee injury. Patient says he started a new job recently working with [employer] department for the [employer] system. He says he slipped on a wet floor on 2018 and injured his knee at that time. He was subsequently seen here in the emergency department and had films showing no acute fracture. He was sent out with ibuprofen ice and elevation until he had a sprain of the knee. He returns today stating that the knee is actually a little more sore now. He denies any locking or giving way of the joint. Patient is taking no treatment for any other chronic condition. He reports allergy to penicillin. No other allergies. No history of peptic ulcer disease. No known history of kidney or liver disease. - Related Data Allergies/Adverse Reactions: Penicillins Allergy (Verified 02/26/19 18:03) Past Medical History - General Information source: Patient - Social History Smoking Status: Current Every Day Smoker Family History: None Patient has suicidal ideation: No Patient has homicidal ideation: No Pulmonary Medical History: Reports: Hx Asthma Renal/ Medical History: Denies: Hx Peritoneal Dialysis Skin Medical History: Reports Hx Eczema Past Surgical History: Reports: Hx Orthopedic Surgery - rt knee Review of Systems - Review of Systems Notes: Constitutional: Negative for fever. HENT: Negative for sore throat. Eyes: Negative for visual changes. Cardiovascular: Negative for chest pain. Respiratory: Negative for shortness of breath. Gastrointestinal: Negative for abdominal pain, vomiting or diarrhea. Genitourinary: Negative for dysuria. Musculoskeletal: As per HPI. Skin: Negative for rash. Neurological: Negative for headaches, weakness or numbness. 10 point ROS negative except as marked above and in HPI. Physical Exam - Vital signs Vitals: Temp Pulse Resp BP Pulse Ox 98.1 F 97 17 165/103 H 97 02/26/19 17:43 02/26/19 17:43 02/26/19 17:43 02/26/19 17:43 02/26/19 17:43 - Notes Notes: GENERAL: Somewhat obese male approximately stated age appearing in no acute distress. SKIN: Good turgor no rashes. HEAD: Normocephalic atraumatic. EYES: PERRLA. EOMI. Conjunctivae and sclerae clear. NECK: Supple. No masses or thyromegaly. No adenopathy. Carotids 2+ without bruits. No JVD. BACK: Symmetrical without tenderness. CHEST: Respirations unlabored. Breath sounds clear and symmetrical. HEART: Regular rhythm. No murmur gallop or rub. ABDOMEN: Soft nontender without masses, organomegaly or rebound. Bowel sounds normally active. No bruits. EXTREMITIES: Small effusion of left knee. Diffuse tenderness anteriorly. Limited range of motion secondary to pain. No warmth or redness. No gross ligamentous instability no calf tenderness. Cap refill less than 1.5 seconds. Dorsalis pedis and posterior tibial pulses 3+ and symmetrical. NEUROLOGICAL: Alert and oriented x3. Nonfocal. PSYCHIATRIC: Appropriate affect. Course - Re-evaluation Re-evalutation: 02/26/19 21:30 Toradol IM. Ice pack. Knee immobilizer. Crutches. Ortho referral. - Vital Signs Vital signs: Temp Pulse Resp BP Pulse Ox 98.2 F 69 17 133/71 H 97 02/26/19 20:16 02/26/19 20:16 02/26/19 20:16 02/26/19 20:16 02/26/19 20:16 - Laboratory Result Diagrams: 02/26/19 18:25 02/26/19 18:25 Laboratory results interpreted by me: 02/26/19 02/26/19 18:25 18:25 Lymph % (Auto) 48.7 H ESR 31 H C-Reactive Protein 15.8 H - Diagnostic Test Radiology reviewed: Reports reviewed Radiology results interpreted by ga: 02/26/19 21:29 Radiologist reports small effusion and a loose body present with no obvious fracture or dislocation. Discharge - Discharge Clinical Impression: Left knee pain Qualifiers: Chronicity: acute Qualified Code(s): M25.562 - Pain in left knee Left knee sprain Qualifiers: Encounter type: subsequent encounter Involved ligament of knee: unspecified ligament Qualified Code(s): S83.92XD - Sprain of unspecified site of left knee, subsequent encounter Condition: Stable Disposition: HOME, SELF-CARE Instructions: Use of Crutches ([facility]), Ice & Elevation ([facility]), Suspected Internal Knee Injury ([facility]), Knee Immobilizing Splint ([facility]), Sprained Knee ([facility]) Prescriptions: Indomethacin [Indocin 50 mg Supp] 50 mg WA TID 10 Days #30 supp.rect Forms: Return to Work Referrals: MARIE AVILES JR, DO [ACTIVE PROVISIONAL STAFF] - Follow up as needed
[2019-02-26 22:02] VITALS: BP 131/73
== END 2019-02-26 22:02 | disposition home or self-care (01) ==
LOC: ER 17:38
DX: S83.92XD Sprain of unspecified site of left knee, subsequent encounter (principal); M25.562 Pain in left knee; W01.0XXD Fall on same level from slipping, tripping and stumbling without subsequent striking against object, subsequent encounter; Z88.0 Allergy status to penicillin
CPT/HCPCS: 99283; 96372; 36415; 85025; 85652; 86140; 80053; 73564; L1830; J1885

== ENCOUNTER 2019-04-17 01:02 | Emergency (ER) | payer SELFPAY ==
[2019-04-17] MEDS ORDERED: KETOROLAC TROMETHAMINE INJ/PF 30 MG/1 ML SDV IV ONE (01:26)
[2019-04-17 01:30] VITALS: BP 143/88
[2019-04-17 02:40] LABS: ABSOLUTE BASOPHILS # (AUTO) 0.1 10^3/uL (0.0-0.2); ABSOLUTE EOSINOPHILS # (AUTO) 0.2 10^3/uL (0.0-0.6); ABSOLUTE LYMPHOCYTES (AUTO) 3.8 10^3/uL (0.5-4.7); ABSOLUTE MONOCYTES (AUTO) 0.9 10^3/uL (0.1-1.4); ABSOLUTE NEUT (AUTO) 7.6 10^3/uL (1.7-8.2); BASOPHILS % (AUTO) 1.1 % (0-2); EOSINOPHILS % (AUTO) 1.2 % (0-6); HEMATOCRIT 41.1 % (37.9-51.0); LYMPHOCYTES % (AUTO) 30.2 % (13-45); MEAN CORPUSCULAR HEMOGLOBIN 30.3 pg (27.0-33.4); MEAN CORPUSCULAR VOLUME 89 fl (80-97); MONOCYTES % (AUTO) 7.5 % (3-13); PLATELET COUNT 248 10^3/uL (150-450); RED BLOOD COUNT 4.61 10^6/uL (4.35-5.55); RED CELL DISTRIBUTION WIDTH 13.1 % (11.5-14.0); TOTAL CELLS COUNTED % (AUTO) 100 %; WHITE BLOOD COUNT 12.6 10^3/uL (4.0-10.5)
[2019-04-17 02:52] LABS: ALBUMIN 4.1 g/dL (3.5-5.0); ALKALINE PHOSPHATASE 78 U/L (38-126); ANION GAP 8 (5-19); ASPARTATE AMINO TRANSFERASE 24 U/L (17-59); BILIRUBIN,TOTAL 0.2 mg/dL (0.2-1.3); BLOOD UREA NITROGEN 16 mg/dL (7-20); CALCIUM 9.5 mg/dL (8.4-10.2); CARBON DIOXIDE 27 mmol/L (22-30); CHLORIDE 103 mmol/L (98-107); GLUCOSE 92 mg/dL (75-110); TOTAL PROTEIN 7.3 g/dL (6.3-8.2)
[2019-04-17 03:19] LABS: APPEARANCE,URINE CLEAR; BILIRUBIN,URINE NEGATIVE (NEGATIVE); COLOR,URINE YELLOW; GLUCOSE, URINE NEGATIVE (NEGATIVE); KETONES,URINE NEGATIVE (NEGATIVE); LEUKOCYTE ESTERASE,URINE NEGATIVE (NEGATIVE); NITRITE,URINE NEGATIVE (NEGATIVE); PROTEIN,URINE NEGATIVE (NEGATIVE); URINE SPECIFIC GRAVITY 1.026
[2019-04-17] MEDS ORDERED: KETOROLAC TROMETHAMINE INJ/PF 30 MG/1 ML SDV ONE (03:28)
[2019-04-17] MEDS ORDERED: LIDOCAINE 1% INJ-PF (10 MG/ML) 30 ML SDV ONE (04:44)
[2019-04-17] MEDS ORDERED: METHYLPREDNISOLONE ACETATE INJ 80 MG/1 ML VIAL ONE (04:44)
[2019-04-17] MEDS ORDERED: IBUPROFEN 600 MG TABLET ONE (05:28)
--- NOTE | 2019-04-17 06:20 | ER Document Report ---
ED General - General Chief Complaint: Knee Pain Stated Complaint: POSSIBLE KNEE INJURY Time Seen by Provider: 04/17/19 04:00 TRAVEL OUTSIDE OF THE [place] IN LAST 30 DAYS: No - HPI Notes: CC: Pain, swelling, instability left knee. Mr. Cervantes is a 33-year-old male Seen by me previously in ED and referred to Ortho Dr. Landaverde. Effusion aspirated in office. Now with continued pain/swelling. Patient says he started a new job recently working with [employer] department for the [employer] system. He says he slipped on a wet floor on 22 February 2019 and injured his knee at that time. He was subsequently seen here in the emergency department and had films showing no acute fracture. He was sent out with ibuprofen ice and elevation until he had a sprain of the knee initially. I placed him in knee immobilzer and gave crutches at earlier visit. No current meds. Patient is taking no treatment for any other chronic condition. He reports allergy to penicillin. No other allergies. No history of peptic ulcer disease. No known history of kidney or liver disease. - Related Data Allergies/Adverse Reactions: Penicillins Allergy (Verified 02/26/19 18:03) Past Medical History - General Information source: Patient - Social History Smoking Status: Current Every Day Smoker Family History: None Patient has suicidal ideation: No Patient has homicidal ideation: No Pulmonary Medical History: Reports: Hx Asthma Renal/ Medical History: Denies: Hx Peritoneal Dialysis Skin Medical History: Reports Hx Eczema Past Surgical History: Reports: Hx Orthopedic Surgery - rt knee Review of Systems - Review of Systems Notes: ROS otherwise negative. Physical Exam - Vital signs Vitals: Temp Pulse Resp BP Pulse Ox 98.9 F 106 H 20 143/88 H 98 04/17/19 01:29 04/17/19 01:29 04/17/19 01:29 04/17/19 01:29 04/17/19 01:29 - Notes Notes: GENERAL: Somewhat obese male approximately stated age appearing in no acute distress. SKIN: Good turgor no rashes. HEAD: Normocephalic atraumatic. EYES: PERRLA. EOMI. Conjunctivae and sclerae clear. NECK: Supple. No masses or thyromegaly. No adenopathy. Carotids 2+ without bruits. No JVD. BACK: Symmetrical without tenderness. CHEST: Respirations unlabored. Breath sounds clear and symmetrical. HEART: Regular rhythm. No murmur gallop or rub. ABDOMEN: Soft nontender without masses, organomegaly or rebound. Bowel sounds normally active. No bruits. EXTREMITIES: Left knee with small effusion present tender over medial joint linda e. Limited range of motion secondary to pain. No gross ligamentous instability. No warmth or redness. No edema. No calf tenderness. Cap refill less than 1.5 seconds. Dorsalis pedis and posterior tibial pulses 3+ and symmetrical. NEUROLOGICAL: Alert and oriented x3. Nonfocal. PSYCHIATRIC: Appropriate affect. Course - Re-evaluation Re-evalutation: 04/17/19 06:21 Suspect this is a meniscal injury. We talked about various options. At this point patient would like to try steroid injection. He said the orthopedist did not inject steroids at the earlier visit. See separate procedure note. Patient will also be started on oral naproxen. - Vital Signs Vital signs: Temp Pulse Resp BP Pulse Ox 98.9 F 106 H 20 143/88 H 98 04/17/19 01:29 04/17/19 01:29 04/17/19 01:29 04/17/19 01:29 04/17/19 01:29 - Laboratory Result Diagrams: 04/17/19 02:25 04/17/19 02:25 Laboratory results interpreted by me: 04/17/19 04/17/19 02:25 02:40 WBC 12.6 H Urine Blood MODERATE H Urine Urobilinogen 4.0 H Procedures - Joint Aspiration Left Knee Time completed: 05:00 Consent obtained: Yes Joint aspiration pre-procedure: Chloraprep applied Anesthetic type: 1% Lidocaine mL's of anesthetic: 3 Needle size: 25 Amount/type of drainage: 25 ml luis angel Number of attempts: 1 Complications: No Notes: Injection of 5 cc 1% plain lidocaine and 40 mg of Depo-Medrol intra-articular Discharge - Discharge Clinical Impression: Internal derangement of left knee Condition: Stable Disposition: HOME, SELF-CARE Instructions: Use of Crutches ([facility]), Ice & Elevation ([facility]), Suspected Internal Knee Injury ([facility]), Knee Immobilizing Splint ([facility]) Additional Instructions: Follow-up with Dr. Aviles from orthopedics Prescriptions: Naproxen 500 mg PO BID PRN #14 tablet PRN Reason: Referrals: MARIE AVILES JR, DO [ACTIVE PROVISIONAL STAFF] - Follow up as needed
== END 2019-04-17 12:22 | disposition home or self-care (01) ==
LOC: ER 01:02 → 2S 04-18 12:14
DX: M23.92 Unspecified internal derangement of left knee (principal); M25.562 Pain in left knee; F17.200 Nicotine dependence, unspecified, uncomplicated; Z88.0 Allergy status to penicillin
CPT/HCPCS: 36415; 83690; 85025; 80053; 81001; 20610; J1885

== ENCOUNTER 2019-05-14 18:45 | Emergency (ER) | payer SELFPAY ==
--- NOTE | 2019-05-14 18:58 | ER Document Report ---
ED Medical Screen (RME) - General Chief Complaint: Flu Symptoms Stated Complaint: SORE THROAT Time Seen by Provider: 05/14/19 18:52 Mode of Arrival: Ambulatory Information source: Patient Notes: 33-year-old male presented to ED for flulike symptoms body aches cough congestion runny nose fever. He states he had a fever yesterday but none today. He states his boss told him that he had to get checked out before he could come back to work. He does have an elevated blood pressure of 190/110. He has not been diagnosed with high blood pressure but sometimes has it when he come to the emergency room. He states he does not have a primary care doctor and has not followed up with his high blood pressures. He states he has body aches all over with a level 3/5. He states he smokes about 3 cigarettes a day drinks weekly no drugs. He does have a history of eczema and he had a surgery on his right knee but he does not know what for he was 16. He states he has been to the emergency recently but he has not had a primary care in a long time. I have greeted and performed a rapid initial assessment of this patient. A comprehensive ED assessment and evaluation of the patient, analysis of test results and completion of medical decision making process will be conducted by an additional ED providers. TRAVEL OUTSIDE OF THE [place] IN LAST 30 DAYS: No - Related Data Allergies/Adverse Reactions: Penicillins Allergy (Verified 02/26/19 18:03) Past Medical History Pulmonary Medical History: Reports: Hx Asthma Renal/ Medical History: Denies: Hx Peritoneal Dialysis Skin Medical History: Reports Hx Eczema Past Surgical History: Reports: Hx Orthopedic Surgery - rt knee Physical Exam - Vital signs Vitals: Temp Pulse Resp Pulse Ox 98.4 F 101 H 18 96 05/14/19 18:49 05/14/19 18:49 05/14/19 18:49 05/14/19 18:49 Course - Vital Signs Vital signs: Temp Pulse Resp BP Pulse Ox 98.4 F 101 H 18 96 05/14/19 18:49 05/14/19 18:49 05/14/19 18:49 05/14/19 18:49
--- NOTE | 2019-05-14 19:28 | RADIOLOGY REPORT (SQ) ---
EXAM DESCRIPTION: CHEST 2 VIEWS COMPLETED DATE/TIME: 05/14/2019 7:19 pm REASON FOR STUDY: Cough congestion high blood pressure COMPARISON: 06/21/2018 EXAM PARAMETERS: NUMBER OF VIEWS: two views TECHNIQUE: Digital Frontal and Lateral radiographic views of the chest acquired. RADIATION DOSE: NA LIMITATIONS: none FINDINGS: LUNGS AND PLEURA: No opacities, masses or pneumothorax. No pleural effusion. MEDIASTINUM AND HILAR STRUCTURES: No masses or contour abnormalities. HEART AND VASCULAR STRUCTURES: Heart normal size. No evidence for failure. BONES: No acute findings. HARDWARE: None in the chest. OTHER: No other significant finding. IMPRESSION: NO ACUTE RADIOGRAPHIC FINDING IN THE CHEST. TECHNICAL DOCUMENTATION: JOB ID: [id number] 2010 [employer]- All Rights Reserved Reading location - IP/workstation name: [email or web address]
[2019-05-14 19:33] LABS: ABSOLUTE EOSINOPHILS # (AUTO) 0.2 10^3/uL (0.0-0.6); ABSOLUTE LYMPHOCYTES (AUTO) 3.3 10^3/uL (0.5-4.7); BASOPHILS % (AUTO) 0.3 % (0-2); EOSINOPHILS % (AUTO) 1.4 % (0-6); HEMATOCRIT 42.2 % (37.9-51.0); HEMOGLOBIN 14.3 g/dL (13.5-17.0); LYMPHOCYTES % (AUTO) 26.1 % (13-45); MEAN CORPUSCULAR HEMOGLOBIN 30.4 pg (27.0-33.4); MEAN CORPUSCULAR HGB CONC 33.9 g/dL (32.0-36.0); MEAN CORPUSCULAR VOLUME 90 fl (80-97); MONOCYTES % (AUTO) 8.3 % (3-13); PLATELET COUNT 244 10^3/uL (150-450); RED BLOOD COUNT 4.72 10^6/uL (4.35-5.55); RED CELL DISTRIBUTION WIDTH 13.1 % (11.5-14.0); SEGMENTED NEUTROPHILS % (AUTO) 63.9 % (42-78); TOTAL CELLS COUNTED % (AUTO) 100 %; WHITE BLOOD COUNT 12.5 10^3/uL (4.0-10.5)
--- NOTE | 2019-05-14 19:44 | ER Document Report ---
ED General - General Chief Complaint: Flu Symptoms Stated Complaint: SORE THROAT Time Seen by Provider: 05/14/19 18:52 Mode of Arrival: Ambulatory Notes: 33-year-old male smokes cigarettes and marijuana presenting with scratchy throat cough congestion for 2 days. No fever no chills. Symptoms are moderate. 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 He has no travel. He says he is slightly short of breath. Has no history of asthma. The patient has NO history of travel to high-risk locations for COVID-19 or contact with persons under investigation for or confirmed positive for COVID-19. TRAVEL OUTSIDE OF THE [place] IN LAST 30 DAYS: No - Related Data Allergies/Adverse Reactions: Penicillins Allergy (Verified 02/26/19 18:03) Past Medical History - General Information source: Patient - Social History Smoking Status: Current Every Day Smoker Cigarette use (# per day): Yes Chew tobacco use (# tins/day): No Smoking Education Provided: Yes - The patient ED visit today was directly related to their abuse of tobacco. Frequency of alcohol use: Social Drug Abuse: None Family History: None Patient has suicidal ideation: No Patient has homicidal ideation: No Pulmonary Medical History: Reports: Hx Asthma Renal/ Medical History: Denies: Hx Peritoneal Dialysis Skin Medical History: Reports Hx Eczema Past Surgical History: Reports: Hx Orthopedic Surgery - rt knee Physical Exam - Vital signs Vitals: Temp Pulse Resp Pulse Ox 98.4 F 101 H 18 96 05/14/19 18:49 05/14/19 18:49 05/14/19 18:49 05/14/19 18:49 Course - Re-evaluation Re-evalutation: 05/14/19 19:49 REVIEW OF SYSTEMS GEN: Denies fever, chills, weight loss ENT: Denies sore throat, nasal discharge, ear pain EYES: Denies blurry vision, eye pain, discharge CV: Denies chest pain, palpitations, edema RESP: See HPI GI: Denies abdominal pain, nausea, vomiting, diarrhea MSK: Denies joint pain/swelling, edema, SKIN: Denies rash, skin lesions LYMPH: Denies swollen glands/lymph nodes NEURO: Denies headache, focal weakness or numbness, dizziness PSYCH: Denies depression, suicidal or homicidal ideation PHYSICAL EXAMINATION General: No acute distress, well-nourished Head: Atraumatic, normocephalic ENT: Mouth normal, oropharynx moist, no exudates or tonsillar enlargement Eyes: Conjunctiva normal, pupils equal, lids normal Neck: No JVD, supple, no guarding CVS: Normal rate, regular rhythm, no murmurs Resp: No resp distress, equal and normal breath sounds bilaterally GI: Nondistended, soft, no tenderness to palpation, no rebound or guarding Ext: No deformities, no edema, normal range of motion in upper and lower ext Back: No CVA or midline TTP Skin: No rash, warm Lymphatic: No lymphadeopathy noted Neuro: Awake, alert. Face symmetric. GCS 15. Upper respiratory symptoms. No fever to suggest flu. Work-up sent but not relevant here. Mild stenosis which is expected. Out of the window for Tamiflu will discharge prior to flu test coming back and did discuss home quarantine and social distancing. Not meet indication for [place] testing and x-ray is negative I have discussed with the patient there likely diagnosis, aftercare plan, follow-up plans and my usual and customary return precautions. They verbalized understanding of this. 05/14/19 19:50 - Vital Signs Vital signs: Temp Pulse Resp BP Pulse Ox 98.4 F 101 H 18 190/110 H 96 05/14/19 18:49 05/14/19 18:49 05/14/19 18:49 05/14/19 18:53 05/14/19 18:49 - Laboratory Result Diagrams: 05/14/19 19:12 05/14/19 19:12 Laboratory results interpreted by me: 05/14/19 19:12 WBC 12.5 H - Diagnostic Test Radiology reviewed: Image reviewed, Reports reviewed Discharge - Discharge Clinical Impression: Upper respiratory infection Qualifiers: URI type: unspecified URI Qualified Code(s): J06.9 - Acute upper respiratory infection, unspecified Condition: Good Disposition: HOME, SELF-CARE Instructions: Upper Respiratory Illness ([facility]) Forms: Return to Work
[2019-05-14 19:49] LABS: APPEARANCE,URINE CLEAR; BILIRUBIN,URINE NEGATIVE (NEGATIVE); COLOR,URINE YELLOW; GLUCOSE, URINE NEGATIVE (NEGATIVE); KETONES,URINE NEGATIVE (NEGATIVE); PROTEIN,URINE NEGATIVE (NEGATIVE); URINE SPECIFIC GRAVITY 1.019; UROBILINOGEN,URINE NEGATIVE mg/dL (<2.0)
[2019-05-14 19:52] LABS: ALBUMIN 4.1 g/dL (3.5-5.0); ALKALINE PHOSPHATASE 72 U/L (38-126); ANION GAP 7 (5-19); ASPARTATE AMINO TRANSFERASE 24 U/L (17-59); BILIRUBIN,TOTAL 0.2 mg/dL (0.2-1.3); BLOOD UREA NITROGEN 12 mg/dL (7-20); CALCIUM 9.6 mg/dL (8.4-10.2); CARBON DIOXIDE 28 mmol/L (22-30); CHLORIDE 104 mmol/L (98-107); GLUCOSE 99 mg/dL (75-110); POTASSIUM 4.3 mmol/L (3.6-5.0); TOTAL PROTEIN 7.2 g/dL (6.3-8.2)
[2019-05-14 19:56] LABS: A TYPE INFLUENZA AG NEGATIVE (NEGATIVE); B INFLUENZA AG NEGATIVE (NEGATIVE)
[2019-05-14 20:00] VITALS: BP 180/92
== END 2019-05-14 19:59 | disposition home or self-care (01) ==
LOC: ER 18:45
DX: J06.9 Acute upper respiratory infection, unspecified (principal); R09.89 Other specified symptoms and signs involving the circulatory and respiratory systems; R05 Cough; R06.02 Shortness of breath; F17.210 Nicotine dependence, cigarettes, uncomplicated; Z88.0 Allergy status to penicillin
CPT/HCPCS: 36415; 71046; 80053; 81001; 83690; 83880; 85025; 87804; 99283

== ENCOUNTER 2019-12-23 21:16 | Emergency (ER) | payer SELFPAY ==
--- NOTE | 2019-12-23 21:56 | ER Document Report ---
ED Medical Screen (RME) - General Chief Complaint: Seizure Stated Complaint: POSSIBLE SEIZURE FALLING EPISODE Time Seen by Provider: 12/23/19 21:38 TRAVEL OUTSIDE OF THE [place] IN LAST 30 DAYS: No - HPI Notes: 12/23/19 21:54 34-year-old male presents to the emergency room after he suspects he had a seizure at 1999 today while he was working on the computer, states he lost about 20 minutes of his time, he states he came to and now has a headache. States he woke up to his dog licking his face. has not tried any [id number] medications for this issue. Patient has never been evaluated for seizure before. Reports he had 2 seizures [id number] year and a half ago after being sexually active with his partner, has never had a seizure prior. Patient was never evaluated after he had his [id number] seizures a year and half ago. Has never followed with a primary care provider for this issue or neurologist. Denies any chest pain or shortness of breath, nausea vomiting or diarrhea. Patient states he just felt really hot for a few seconds prior to having his seizure. Denies any history of aura. Patient denies any tongue biting or incontinence is. Reports he just feels weak after having a seizure today. Denies any new medications foods or travel. Denies any new diet. Patient has never been on any seizure medication, has never had a CT of his head. I have greeted and performed a rapid initial assessment of this patient. A comprehensive ED assessment and evaluation of the patient, analysis of test results and completion of the medical decision making process will be conducted by additional ED providers. PHYSICAL EXAMINATION: GENERAL: Well-appearing, well-nourished and in no acute distress. HEAD: Atraumatic, normocephalic. EYES: Pupils equal round extraocular movements intact, conjunctiva are normal. NECK: Normal range of motion CV: s1, s2 regular LUNGS: No respiratory distress Musculoskeletal: Normal range of motion NEUROLOGICAL: Normal speech, normal gait. +2 bilaterally equally. SKIN: Warm, Dry, normal turgor, no rashes or lesions noted. - Related Data Allergies/Adverse Reactions: Penicillins Allergy (Verified 02/26/19 18:03) Past Medical History Pulmonary Medical History: Reports: Hx Asthma Renal/ Medical History: Denies: Hx Peritoneal Dialysis Skin Medical History: Reports Hx Eczema Past Surgical History: Reports: Hx Orthopedic Surgery - rt knee Physical Exam - Vital signs Vitals: Temp Pulse Resp BP Pulse Ox 98.5 F 110 H 18 166/102 H 97 12/23/19 21:23 12/23/19 21:23 12/23/19 21:23 12/23/19 21:23 12/23/19 21:23 Course - Vital Signs Vital signs: Temp Pulse Resp BP Pulse Ox 98.5 F 110 H 18 166/102 H 97 12/23/19 21:23 12/23/19 21:23 12/23/19 21:23 12/23/19 21:23 12/23/19 21:23
[2019-12-23 22:34] LABS: ABSOLUTE EOSINOPHILS # (AUTO) 0.1 10^3/uL (0.0-0.6); ABSOLUTE LYMPHOCYTES (AUTO) 2.5 10^3/uL (0.5-4.7); ABSOLUTE MONOCYTES (AUTO) 0.7 10^3/uL (0.1-1.4); ABSOLUTE NEUT (AUTO) 6.2 10^3/uL (1.7-8.2); BASOPHILS % (AUTO) 0.5 % (0-2); HEMOGLOBIN 13.8 g/dL (13.5-17.0); LYMPHOCYTES % (AUTO) 26.2 % (13-45); MEAN CORPUSCULAR HEMOGLOBIN 30.3 pg (27.0-33.4); MEAN CORPUSCULAR HGB CONC 34.4 g/dL (32.0-36.0); MEAN CORPUSCULAR VOLUME 88 fl (80-97); PLATELET COUNT 262 10^3/uL (150-450); RED BLOOD COUNT 4.55 10^6/uL (4.35-5.55); RED CELL DISTRIBUTION WIDTH 13.1 % (11.5-14.0); SEGMENTED NEUTROPHILS % (AUTO) 65.3 % (42-78); TOTAL CELLS COUNTED % (AUTO) 100 %; WHITE BLOOD COUNT 9.5 10^3/uL (4.0-10.5)
[2019-12-23 22:38] LABS: ALBUMIN 4.1 g/dL (3.5-5.0); ALKALINE PHOSPHATASE 72 U/L (38-126); ANION GAP 9 (5-19); ASPARTATE AMINO TRANSFERASE 24 U/L (17-59); BILIRUBIN,DIRECT 0.1 mg/dL (0.0-0.4); BILIRUBIN,TOTAL 0.3 mg/dL (0.2-1.3); BLOOD UREA NITROGEN 12 mg/dL (7-20); CALCIUM 9.7 mg/dL (8.4-10.2); CARBON DIOXIDE 24 mmol/L (22-30); CHLORIDE 106 mmol/L (98-107); GLUCOSE 132 mg/dL (75-110); POTASSIUM 4.1 mmol/L (3.6-5.0); TOTAL PROTEIN 7.3 g/dL (6.3-8.2)
[2019-12-23 22:51] LABS: APPEARANCE,URINE CLEAR; BILIRUBIN,URINE NEGATIVE (NEGATIVE); COLOR,URINE YELLOW; GLUCOSE, URINE NEGATIVE (NEGATIVE); KETONES,URINE NEGATIVE (NEGATIVE); LEUKOCYTE ESTERASE,URINE NEGATIVE (NEGATIVE); NITRITE,URINE NEGATIVE (NEGATIVE); PROTEIN,URINE NEGATIVE (NEGATIVE); URINE SPECIFIC GRAVITY 1.021
--- NOTE | 2019-12-23 23:03 | RADIOLOGY REPORT (SQ) ---
EXAM DESCRIPTION: CT HEAD WITHOUT IV CONTRAST COMPLETED DATE/TME: 12/23/2019 21:49 EXAM DESCRIPTION: CT of the head without contrast CLINICAL HISTORY: seizure today, unwitnessed COMPARISON: None available TECHNIQUE: Axial CT of the head obtained from the skull apex to the skull base without contrast. FINDINGS: No acute intracranial hemorrhage identified. No mass, mass effect, shift of the midline, abnormal extra-axial fluid collection or CT evidence of acute ischemic change identified. The ventricular system is unremarkable. No acute abnormalities of the supratentorial white matter, basal ganglia, cerebellum, or brainstem. Minimal mucosal thickening of the left maxillary sinus. Mastoid air cells are well aerated. No skull fracture identified. Visualized orbits and globes are unremarkable. IMPRESSION: 1. No acute intracranial abnormality identified. This exam was performed according to our departmental dose-optimization program, which includes automated exposure control, adjustment of the mA and/or kV according to patient size and/or use of iterative reconstruction technique.
--- NOTE | 2019-12-24 01:56 | ER Document Report ---
ED Seizure - General Chief Complaint: Seizure Stated Complaint: POSSIBLE SEIZURE FALLING EPISODE Time Seen by Provider: 12/23/19 21:38 Notes: Patient is a 34-year-old male who comes emergency department for chief complaint of seizure. Patient states that he was working at his computer, he states that he suddenly woke up with a dog licking his face and he had a headache. He states he was very sluggish and had difficulty focusing on anything for of small amount of time after this. He states the last time he felt like this was when he had 2 seizures [id number] around a year ago, the seizures were witnessed by his partner who is at bedside, his partner describes an episode where patient suddenly stopped responding, fell over, was convulsing with his eyes open and rolled back for a brief period of time. Patient never saw neurology or primary care, he has never had a CAT scan of his head. He denies alcohol, recreational drugs, or any daily medications. He denies any diagnosed medical history. He denies any current complaints other than a mild soreness over the left upper part of his head where he believes he struck his head on his computer desk. - Related Data Allergies/Adverse Reactions: Penicillins Allergy (Verified 12/23/19 22:11) Past Medical History - General Information source: Patient - Social History Smoking Status: Current Every Day Smoker Frequency of alcohol use: None Drug Abuse: None Lives with: Spouse/Significant other Family History: None Pulmonary Medical History: Reports: Hx Asthma Renal/ Medical History: Denies: Hx Peritoneal Dialysis Skin Medical History: Reports Hx Eczema Past Surgical History: Reports: Hx Orthopedic Surgery - rt knee Review of Systems - Review of Systems Constitutional: No symptoms reported EENT: No symptoms reported Cardiovascular: No symptoms reported Respiratory: No symptoms reported Gastrointestinal: No symptoms reported Genitourinary: No symptoms reported Male Genitourinary: No symptoms reported Musculoskeletal: See HPI Skin: No symptoms reported Hematologic/Lymphatic: No symptoms reported Neurological/Psychological: See HPI Physical Exam - Vital signs Vitals: Temp Pulse Resp BP Pulse Ox 98.5 F 110 H 18 166/102 H 97 12/23/19 21:23 12/23/19 21:23 12/23/19 21:23 12/23/19 21:23 12/23/19 21:23 - Notes Notes: GENERAL: Alert, interacts well. No acute distress. HEAD: Normocephalic, small tender area over the left upper outer scalp, no hematoma, no open wounds, no other signs of trauma. Otherwise unremarkable. EYES: Pupils equal, round, and reactive to light. Extraocular movements intact. ENT: Oral mucosa moist, tongue midline. Oropharynx unremarkable. Airway patent. Nares patent, sinuses non-tender, ear canals unremarkable, TM's intact. NECK: Full range of motion. Supple. Trachea midline. No lymphadenopathy. LUNGS: Clear to auscultation bilaterally, no wheezes, rales, or rhonchi. No respiratory distress. Non-tender chest wall. HEART: Regular rate and rhythm. No murmur ABDOMEN: Soft, non-tender. Non-distended. Bowel sounds present in all 4 quadrant s. GENITOURINARY: Deferred EXTREMITIES: Moves all 4 extremities spontaneously. No edema, normal radial and dorsalis pedis pulses bilaterally. No cyanosis. BACK: no cervical, thoracic, lumbar midline tenderness. No saddle anesthesia, normal distal neurovascular exam. Moves all extremities in full range of motion. NEUROLOGICAL: Alert and oriented x3. Normal speech. Cranial nerves II through XII grossly intact. Strength 5/5 in all extremities. PSYCH: Normal affect, normal mood. SKIN: Warm, dry, normal turgor. No rashes or lesions noted. Course - Re-evaluation Re-evalutation: Patient is smiling, talkative, well-appearing. He has a small area over the left upper outer scalp that is slightly sore but he has no other complaints. He denies headache. He has no signs of trauma otherwise. Vital signs show hypertension but otherwise unremarkable. No chest pain. Based on patient's description I am concerned he might of had a seizure along with describing a postictal phase. He also has had witnessed seizures previously. However patient has returned to baseline, only had 1 seizure tonight, previous seizure was a while ago. CAT scan of the head is unremarkable, CBC, chemistries, troponin, EKG reviewed from triage and unremarkable. I discussed with patient at length. Patient will follow-up with primary care and have his blood pressure reevaluated, he will also follow-up with neurology, he was advised not to drive until cleared, he was also prescribed Keppra after we had a long discussion of different options because he has had multiple seizures now. I discussed precautions, monitoring for head injury, and return instructions in detail with patient and significant other. They state appreciation and agreement. - Vital Signs Vital signs: Temp Pulse Resp BP Pulse Ox 98.2 F 87 23 H 160/101 H 100 12/24/19 02:23 12/24/19 02:23 12/24/19 02:23 12/24/19 02:23 12/24/19 02:23 - Laboratory Result Diagrams: 12/23/19 22:06 12/23/19 22:06 Laboratory results interpreted by me: 12/23/19 12/23/19 22:06 22:16 Glucose 132 H Urine Urobilinogen 2.0 H - EKG Interpretation by Me Additional EKG results interpreted by me: EKG shows sinus rhythm and a rate of 87, normal axis, no T wave inversions versus M changes in consecutive leads, QTC 419 Discharge - Discharge Clinical Impression: Seizure-like activity Condition: Stable Disposition: HOME, SELF-CARE Additional Instructions: Your evaluation at this time does not show any concerning findings. However your description is very suggestive of a seizure, because this has happened multiple times now we are prescribing you the antiseizure medication to take, along with this please follow-up with the neurology referral for management and treatment. You must be cleared before you can drive or you will be held responsible for accidents caused by seizure activity. It is also very important that you do not put yourself in any dangerous situations while you are alone (i.e. swimming by yourself, etc.). Avoid alcohol as this makes it much more likely will have a seizure. Try to get enough sleep. Call the listed referral for your follow-up and additional management (or alternatively choose a neurologist you prefer). She had injury precautions listed below. Return for any concerning symptoms including vomiting, severe headache, confusion, repeated seizure, or any other concerning or worsening symptoms. [facility] [address] [place] [id number] Head Injury Precautions according to the directions on the bottle. Do not take any medication that may alter your level of alertness (unless you've discussed it with the doctor first). Limit activity for the first 24 hours. During the first 24 hours, check to see approximately every two to three hours that the patient is easily arousable, responds normally, and can perform common tasks such as walking without difficulty. Contact your doctor or go to the hospital if any of the following things occur: Persistent vomiting, difficulty in arousing the patient, worsening or continued headache, or failure to improve as expected. Head injuries can cause symptoms that persist for a few days or even a few weeks. Prescriptions: Levetiracetam [Keppra 500 mg Tablet] 500 mg PO Q12 #60 tablet Forms: Return to Work
[2019-12-24 02:28] VITALS: BP 160/101
--- NOTE | 2019-12-24 07:48 | EKG REPORT ---
SEVERITY:- BORDERLINE ECG - SINUS RHYTHM PROBABLE LEFT ATRIAL ABNORMALITY : Confirmed by: Sebastien Junior MD 24-Dec-2019 07:47:26
== END 2019-12-24 02:23 | disposition home or self-care (01) ==
LOC: ER 21:16
DX: R56.9 Unspecified convulsions (principal); R51.9 Headache, unspecified; F17.200 Nicotine dependence, unspecified, uncomplicated
CPT/HCPCS: 36415; 70450; 80053; 81001; 83735; 84443; 84484; 85025; 93005; 93010; 99285